=== PATIENT | female | born 1955 | race Caucasian/White ===

== ENCOUNTER → 2018-07-16 10:56 | Outpatient (CLI) | payer BC, SELFPAY ==
[2018-07-16 11:47] LABS: Add Manual Diff / Slide Review NO; Basophils Percent Auto 0.6 % (0-2); Hematocrit 43.9 % (36-46); Hemoglobin 15.1 g/dL (12.0-16.0); Lymphocytes Percent Auto 20.3 % (25-40); Mean Corpuscular HGB Conc 34.3 % (30-36); Mean Corpuscular Hemoglobin 31.3 PG (26-34); Mean Corpuscular Volume 91.3 fL (80-100); Monocytes Percent Auto 7.5 % (3-14); Neutrophils Absolute Auto 5000 /uL (3000-5900); Neutrophils Percent Auto 70.6 % (50-75); Platelet Count 244 X10^3/uL (150-400); Red Blood Cell Count 4.81 X10^6/uL (4.0-5.2); Red Cell Distribution Width 13.2 % (11.6-14.8)
[2018-07-16 12:00] LABS: Cholesterol 187 mg/dL (140-199); HDL Cholesterol 54 mg/dL (40-60); LDL Cholesterol Calculated 109 mg/dL (<100); Triglycerides 119 mg/dL (35-150)
== END ==
PROVIDERS: Visit Provider Physician Assistant
DX: I10 Essential (primary) hypertension (principal); E78.5 Hyperlipidemia, unspecified
CPT/HCPCS: 36415; 80061; 85025

== ENCOUNTER → 2019-01-28 09:38 | Outpatient (CLI) | payer BC, SELFPAY ==
--- NOTE | 2019-01-28 | DI.MG.S_ITS ---
UNILATERAL LEFT DIGITAL SCREENING MAMMOGRAM 3D/2D WITH CAD POST MASTECTOMY: 01/28/2019 CLINICAL: Routine screening. Personal history of right breast cancer. Family history of breast cancer. Comparison is made to exams dated: 01/06/2018 mammogram, 12/18/2016 mammogram, and 12/12/2015 mammogram - [facility]. The tissue of left breast is heterogeneously dense. This may lower the sensitivity of mammography. Current study was also evaluated with a Computer Aided Detection (CAD) system. No significant masses, calcifications, or other findings are seen in the breast. There has been no significant interval change. IMPRESSION: NEGATIVE There is no mammographic evidence of malignancy. A 1 year screening mammogram is recommended. This exam was interpreted at Station ID: [id number]. NOTE: For mammograms, a report in lay terms will be sent to the patient. Approximately 15% of breast malignancies will not be visualized mammographically. In the management of a palpable breast mass, a negative mammogram must not discourage biopsy of a clinically suspicious lesion. Electronically Signed By: Krystian stone/siva:01/28/2019 10:48:52 copy to: SPENCER GUADARRAMA copy to: PAUL COYNE letter sent: Normal Exam ACR BI-RADS Category 1: Negative 3341F
== END ==
PROVIDERS: PCP Physician Assistant; Visit Provider Physician Assistant
DX: Z12.31 Encounter for screening mammogram for malignant neoplasm of breast (principal); Z85.3 Personal history of malignant neoplasm of breast; Z80.3 Family history of malignant neoplasm of breast
CPT/HCPCS: 77063; 77067

== ENCOUNTER → 2020-02-08 09:45 | Outpatient (CLI) | payer BC, SELFPAY ==
--- NOTE | 2020-02-08 09:48 | DI.MG.S_ITS ---
UNILATERAL LEFT DIGITAL SCREENING MAMMOGRAM 3D/2D WITH CAD POST MASTECTOMY: 02/08/2020 CLINICAL: Routine screening. Personal history of right breast cancer. Family history of breast cancer. Comparison is made to exams dated: 01/28/2019 mammogram, 01/06/2018 mammogram, and 12/18/2016 mammogram - [facility]. The tissue of left breast is heterogeneously dense. This may lower the sensitivity of mammography. Current study was also evaluated with a Computer Aided Detection (CAD) system. No significant masses, calcifications, or other findings are seen in the breast. There has been no significant interval change. IMPRESSION: NEGATIVE There is no mammographic evidence of malignancy. A 1 year screening mammogram is recommended. This exam was interpreted at Station ID: [id number]. NOTE: For mammograms, a report in lay terms will be sent to the patient. Approximately 15% of breast malignancies will not be visualized mammographically. In the management of a palpable breast mass, a negative mammogram must not discourage biopsy of a clinically suspicious lesion. Electronically Signed By: Krystian stone/siva:02/08/2020 10:21:55 copy to: SPENCER GUADARRAMA copy to: LAYLA GUARDADO letter sent: Normal Exam ACR BI-RADS Category 1: Negative 3341F
== END ==
PROVIDERS: PCP Physician Assistant; Referring Provider Physician Assistant; Visit Provider Physician Assistant
DX: Z12.31 Encounter for screening mammogram for malignant neoplasm of breast (principal); Z85.3 Personal history of malignant neoplasm of breast; Z80.3 Family history of malignant neoplasm of breast; Z90.11 Acquired absence of right breast and nipple
CPT/HCPCS: 77063; 77067

== ENCOUNTER → 2020-05-10 10:01 | Outpatient (CLI) | payer BC, SELFPAY ==
[2020-05-10 10:46] LABS: Add Manual Diff / Slide Review NO; Basophils Absolute Auto 0 /uL (0-100); Basophils Percent Auto 0.7 % (0-2); Eosinophils Absolute Auto 100 /uL (0-450); Eosinophils Percent Auto 1.3 % (2-4); Hematocrit 44.5 % (36-46); Hemoglobin 15.6 g/dL (12.0-16.0); Lymphocytes Absolute Auto 1600 /uL (1100-4500); Mean Corpuscular HGB Conc 35.1 % (30-36); Mean Corpuscular Hemoglobin 31.7 PG (26-34); Mean Corpuscular Volume 90.4 fL (80-100); Monocytes Absolute Auto 500 /uL (0-900); Monocytes Percent Auto 8.5 % (3-14); Neutrophils Absolute Auto 3900 /uL (1500-7000); Neutrophils Percent Auto 63.5 % (50-75); Platelet Count 234 X10^3/uL (150-400); Red Blood Cell Count 4.92 X10^6/uL (4.0-5.2); Red Cell Distribution Width 12.9 % (11.6-14.8); White Blood Cell Count 6.1 X10^3/uL (4.5-11.0)
[2020-05-10 11:02] LABS: Alanine Aminotransferase 25 IU/L (<35); Albumin 4.3 g/dL (3.5-5.0); Albumin Globulin Ratio 1.7 (1.0-2.8); Alkaline Phosphatase 74 U/L (38-126); Aspartate Aminotransferase 28 IU/L (14-36); BUN Creatinine Ratio 17.8 (6-22); Bilirubin Total 1.1 mg/dL (0.2-1.3); Blood Urea Nitrogen 13 mg/dL (7-17); Calcium 9.6 mg/dL (8.4-10.2); Carbon Dioxide 24 mmol/L (22-32); Chloride 108 mmol/L (98-107); Cholesterol 204 mg/dL (140-199); Estimated Glomerular Filt Rate > 60.0 mL/min (>60); Globulin 2.6 g/dL (1.7-4.1); Glucose 111 mg/dL (80-110); HDL Cholesterol 47 mg/dL (40-60); HEMOLYSIS < 15 (0-50); LDL Cholesterol Calculated 135 mg/dL (<100); Sodium 140 mmol/L (137-145); Total Protein 6.9 g/dL (6.3-8.2); Triglycerides 111 mg/dL (35-150)
== END ==
PROVIDERS: PCP Physician Assistant; Referring Provider Physician Assistant; Visit Provider Physician Assistant
DX: I10 Essential (primary) hypertension (principal); E78.2 Mixed hyperlipidemia
CPT/HCPCS: 36415; 80053; 80061; 85025

== ENCOUNTER → 2021-02-11 11:51 | Outpatient (CLI) | payer BC, MEDICARE, SELFPAY ==
--- NOTE | 2021-02-11 | DI.MG.S_ITS ---
UNILATERAL LEFT DIGITAL SCREENING MAMMOGRAM 3D/2D WITH CAD POST MASTECTOMY: 02/11/2021 CLINICAL: Routine screening. Personal history of right breast cancer. Family history of breast cancer. Comparison is made to exams dated: 02/08/2020 mammogram, 01/28/2019 mammogram, and 01/06/2018 mammogram - [facility]. The tissue of left breast is heterogeneously dense. This may lower the sensitivity of mammography. Current study was also evaluated with a Computer Aided Detection (CAD) system. No significant masses, calcifications, or other findings are seen in the breast. There has been no significant interval change. IMPRESSION: NEGATIVE There is no mammographic evidence of malignancy. A 1 year screening mammogram is recommended. This exam was interpreted at Station ID: [id number]. NOTE: For mammograms, a report in lay terms will be sent to the patient. Approximately 15% of breast malignancies will not be visualized mammographically. In the management of a palpable breast mass, a negative mammogram must not discourage biopsy of a clinically suspicious lesion. Electronically Signed By: Toña mancuso/siva:02/11/2021 12:35:49 copy to: SPENCER GUADARRAMA copy to: LAYLA GUARDADO letter sent: Normal Exam ACR BI-RADS Category 1: Negative 3341F
== END ==
PROVIDERS: PCP Physician Assistant; Referring Provider Internal Medicine; Visit Provider Internal Medicine
DX: Z12.31 Encounter for screening mammogram for malignant neoplasm of breast (principal); Z80.3 Family history of malignant neoplasm of breast; Z85.3 Personal history of malignant neoplasm of breast
CPT/HCPCS: 77063; 77067

== ENCOUNTER → 2022-03-07 14:56 | Outpatient (CLI) | payer MEDICARE, OTHER, SELFPAY ==
--- NOTE | 2022-03-07 15:00 | DI.RAD.S_ITS ---
PROCEDURE: XR DEXA AXIAL SKELETON INDICATIONS: Asymptomatic menopausal state COMPARISON: None. FINDINGS: This blank DEXA report has been sent in error by the PACS system. The correct and complete report will be forthcoming in 1-2 days. Thank you for your patience and understanding. Dictated by: Liliana Scruggs MD, PhD on 03/07/2022 at 17:02 Approved by: Liliana Scruggs MD, PhD on 03/07/2022 at 17:02
== END ==
PROVIDERS: PCP Physician Assistant; Referring Provider Physician Assistant; Visit Provider Physician Assistant
DX: Z78.0 Asymptomatic menopausal state (principal); Z13.820 Encounter for screening for osteoporosis; M85.88 Other specified disorders of bone density and structure, other site
CPT/HCPCS: 77080; 77086

== ENCOUNTER → 2022-08-25 12:53 | Outpatient (CLI) | payer MEDICARE, BC, SELFPAY ==
--- NOTE | 2022-08-25 12:56 | DI.MG.S_ITS ---
UNILATERAL LEFT DIGITAL SCREENING MAMMOGRAM 3D/2D WITH CAD POST MASTECTOMY: 08/25/2022 CLINICAL: Routine screening. Breast cancer. Family history of breast cancer. Comparison is made to exams dated: 02/11/2021 mammogram, 02/08/2020 mammogram, and 01/28/2019 mammogram - [facility]. The left breast is heterogeneously dense, which may obscure small masses (category c / 51-75% glandular tissue). Current study was also evaluated with a Computer Aided Detection (CAD) system. No significant masses, calcifications, or other findings are seen in the breast. There has been no significant interval change. IMPRESSION: NEGATIVE There is no mammographic evidence of malignancy. A 1 year screening mammogram is recommended. This exam was interpreted at Station ID: [id number]. NOTE: For mammograms, a report in lay terms will be sent to the patient. Approximately 15% of breast malignancies will not be visualized mammographically. In the management of a palpable breast mass, a negative mammogram must not discourage biopsy of a clinically suspicious lesion. Electronically Signed By: Abhi ferrari/siva:08/25/2022 14:32:45 copy to: SPENCER GUADARRAMA copy to: LAYLA GUARDADO letter sent: Normal Exam ACR BI-RADS Category 1: Negative 3341F
== END ==
PROVIDERS: PCP Physician Assistant; Visit Provider Physician Assistant
DX: Z12.31 Encounter for screening mammogram for malignant neoplasm of breast (principal); Z85.3 Personal history of malignant neoplasm of breast; Z80.3 Family history of malignant neoplasm of breast
CPT/HCPCS: 77063; 77067

== ENCOUNTER → 2023-10-02 10:37 | Outpatient (CLI) | payer MEDICARE, BC, SELFPAY ==
--- NOTE | 2023-10-02 | DI.MG.S_ITS ---
UNILATERAL LEFT DIGITAL SCREENING MAMMOGRAM 3D/2D WITH CAD: 10/02/2023 CLINICAL: Routine screening. Personal history of right breast cancer. Comparison is made to exams dated: 08/25/2022 mammogram, 02/11/2021 mammogram, and 02/08/2020 mammogram - [facility]. The left breast is heterogeneously dense, which may obscure small masses (category c / 51-75% glandular tissue). Current study was also evaluated with a Computer Aided Detection (CAD) system. No significant masses, calcifications, or other findings are seen in the breast. There has been no significant interval change. IMPRESSION: NEGATIVE There is no mammographic evidence of malignancy. A 1 year screening mammogram is recommended. This exam was interpreted at Station ID: [id number]. NOTE: For mammograms, a report in lay terms will be sent to the patient. Approximately 15% of breast malignancies will not be visualized mammographically. In the management of a palpable breast mass, a negative mammogram must not discourage biopsy of a clinically suspicious lesion. Electronically Signed By: Blair Acosta M.D. acr/penrad:10/02/2023 14:40:10 copy to: SPENCER GUADARRAMA copy to: LAYLA GUARDADO letter sent: Normal Exam ACR BI-RADS Category 1: Negative 3341F
== END ==
PROVIDERS: PCP Physician Assistant; Referring Provider Physician Assistant; Visit Provider Physician Assistant
DX: Z12.31 Encounter for screening mammogram for malignant neoplasm of breast (principal); Z85.3 Personal history of malignant neoplasm of breast
CPT/HCPCS: 77063; 77067

== ENCOUNTER 2024-08-30 10:38 | Emergency (ER) | payer OTHER, SELFPAY ==
[2024-08-30 10:42] VITALS: BP 160/96; PULSE 77; RESP 14; TEMP 37; O2SAT 100; BMI 28.1
--- NOTE | 2024-08-30 10:45 | DI.RAD.S_ITS ---
PROCEDURE: XR WRIST LT MIN 3V INDICATIONS: wrist injury TECHNIQUE: 3 views of the wrist were acquired. COMPARISON: None. FINDINGS: Bones: Comminuted, minimally displaced, intra-articular fracture of the distal radius. Soft tissues: No suspicious soft tissue calcifications. IMPRESSION: Distal radius fracture. Dictated by: Liliana Scruggs MD, PhD on 08/30/2024 at 11:15 Approved by: Liliana Scruggs MD, PhD on 08/30/2024 at 11:15
--- NOTE | 2024-08-30 11:28 | ED_ITS ---
HPI - Extremity Injury (Upper) <Freida Otero PA-C - Last Filed: 08/30/24 12:56> General Chief Complaint: Extremity Injury, Upper Stated Complaint: Fell and hurt her wrist Time Seen by Provider: 08/30/24 11:28 Source: patient Mode of arrival: Ambulatory History of Present Illness HPI narrative: 68-year-old female presents to the emergency department for a fall that occurred on Thursday 2 days ago. She describes tripping with no precipitating events falling on an outstretched hand, her chief complaint is left wrist pain. She takes no blood thinners, she has not strike her head, she is denying any other injuries. She has been icing it, her pain is on the radial aspect. She denies any tingling, weakness, numbness, temperature changes to the wrist or arm. She is right-handed dominant. She lives alone and is . No other treatment tried. History significant for hypertension, right mastectomy, no blood pressures on the right arm, she endorses a history of cellulitis involving her left elbow following a PICC line nothing recent. All other systems are reviewed and are negative. Related Data Home Medications Medication Instructions Recorded Confirmed losartan 25 mg tablet (Cozaar) 25 mg PO DAILY 03/30/18 07/24/21 vit B complex-folic acid 50 ea PO 3XW 03/30/18 07/24/21 calcium citrate 250 mg DAILY 06/06/20 07/24/21 lutein 10 mg tablet 10 mg PO DAILY 07/24/21 07/24/21 Allergies Allergy/AdvReac Type Severity Reaction Status Date / Time codeine Allergy Severe DIFFICULTY Verified 08/30/24 10:42 BREATHING/ITCHING Review of Systems <Freida Otero PA-C - Last Filed: 08/30/24 12:56> Review of Systems Narrative: All other systems reviewed and are negative. Patient History <Freida Otero PA-C - Last Filed: 08/30/24 12:56> Surgical History Status post partial mastectomy Social History Smoking Status: Current every day smoker Smoking Status: Current every day smoker alcohol intake frequency: 3 or more drinks per day Substance Use Type: does not use Exam <Freida Otero PA-C - Last Filed: 08/30/24 12:56> Initial Vital Signs Initial Vital Signs: Vital Signs Temperature 98.6 F 08/30/24 10:42 Pulse Rate 77 08/30/24 10:42 Respiratory Rate 14 08/30/24 10:42 Blood Pressure 160/96 H 08/30/24 10:42 Pulse Oximetry 100 08/30/24 10:42 Oxygen Delivery Method Room Air 08/30/24 10:42 Vital signs reviewed and are normal except for elevated blood pressure reading in a known hypertensive patient. Const Other: Smiling, seated, no distress. She is alert and oriented x4. Chest Other: Atraumatic. Resp Auscultation: clear to auscultation bilaterally Cardio Rate: regular rate Rhythm: regular rhythm Neuro Other: Distal neurovascular is grossly intact to her left arm, pinch mechanism is intact, no issues identified with the median ulnar or radial nerves. Two point discrimination intact. Extrem Left upper extremity: normal capillary refill and wrist Details: abnormal to inspection, tenderness, swelling, abnormal ROM, normal vascular exam, radial pulse present and ulnar pulse present; no unusual warmth, no ecchymosis, no penetrating wound and no deformity; no cyanosis Other: Focal tenderness of the distal radius, no snuffbox tenderness, pinch mechanism is intact. No issues identified with the hand or digits. No ulnar tenderness, no issues identified with the elbow or proximal forearm. Limited wrist ROM pain with flexion extension ulnar and radial deviation are not performed due to positive x-ray findings showing distal radius fracture. <Basilio Almeida DO - Last Filed: 08/30/24 15:02> Initial Vital Signs Initial Vital Signs: Vital Signs Temperature 98.6 F 08/30/24 10:42 Pulse Rate 77 08/30/24 10:42 Respiratory Rate 14 08/30/24 10:42 Blood Pressure 160/96 H 08/30/24 10:42 Pulse Oximetry 100 08/30/24 10:42 Oxygen Delivery Method Room Air 08/30/24 10:42 Course <Freida Otero PA-C - Last Filed: 08/30/24 12:56> Course Course Narrative: Mechanical fall, no precipitating events, radiographs reveal minimally displaced distal radius fracture, it appears impacted, per the radiologist's it was ?comminuted,she is right-handed dominant. She is splinted with a sugar-tong and placed in a splint, she is reexamined then she is comfortable, distal neurovascular is grossly intact. Orders Ordered: ED Orders 08/30/24 10:45 XR wrist LT min 3V Stat Reevaluation(s) Reevaluation #1: She is splinted with a sugar-tong and placed in a splint, she is reexamined then she is comfortable, distal neurovascular is grossly intact. Discussed the importance of orthopedic follow-up and I have given her that information. Vital Signs Vital signs: Vital Signs - 8 hr 08/30/24 10:42 08/30/24 12:04 08/30/24 12:40 Temperature 98.6 F 98.0 F Pulse Rate 77 75 Pulse Rate [Left Radial] 80 Respiratory Rate 14 15 Blood Pressure 160/96 H 148/73 H Pulse Oximetry 100 99 Oxygen Delivery Method Room Air Room Air <Basilio Almeida DO - Last Filed: 08/30/24 15:02> Orders Ordered: ED Orders 08/30/24 10:45 XR wrist LT min 3V Stat Vital Signs Vital signs: Vital Signs - 8 hr 08/30/24 10:42 08/30/24 12:04 08/30/24 12:40 Temperature 98.6 F 98.0 F Pulse Rate 77 75 Pulse Rate [Left Radial] 80 Respiratory Rate 14 15 Blood Pressure 160/96 H 148/73 H Pulse Oximetry 100 99 Oxygen Delivery Method Room Air Room Air MDM - Extremity Injury (Upper) <Freida Otero PA-C - Last Filed: 08/30/24 12:56> Imaging Data Extremity x-ray #1: My Impression: Minimally displaced distal radius impacted fracture, intra-articular. Radiologist's Impression: PROCEDURE: XR WRIST LT MIN 3V INDICATIONS: wrist injury TECHNIQUE: 3 views of the wrist were acquired. COMPARISON: None. FINDINGS: Bones: Comminuted, minimally displaced, intra-articular fracture of the distal radius. Soft tissues: No suspicious soft tissue calcifications. IMPRESSION: Distal radius fracture. Dictated by: Liliana Scruggs MD, PhD on 08/30/2024 at 11:15 Approved by: Liliana Scruggs MD, PhD on 08/30/2024 at 11:15 [facility] Narrative Medical decision making narrative: Minimally displaced closed intra-articular fracture of the distal radius. She is right-handed dominant. She is splinted with a sugar-tong splint and sling she feels comfortable. I have referred her to Orthopedics. Red flag warning signs reviewed in great detail, if she is any issues with the splint, any swelling, decreased sensation, tingling, pain, please return immediately to the emergency department. <Basilio Almeida, DO - Last Filed: 08/30/24 15:02> [facility] Narrative Medical decision making narrative: Minimally displaced closed intra-articular fracture of the distal radius. She is right-handed dominant. She is splinted with a sugar-tong splint and sling she feels comfortable. I have referred her to Orthopedics. Red flag warning signs reviewed in great detail, if she is any issues with the splint, any swelling, decreased sensation, tingling, pain, please return immediately to the emergency department. Dr. Almeida: I was immediately available in the department for consultation. Documentation has been reviewed. I agree with assessment and plan. Discharge Plan Departure Patient Disposition: Home Clinical Impression: Fracture of distal end of radius Qualifiers: Encounter type: initial encounter Fracture type: closed Fracture morphology: other intra-articular Laterality: left Qualified Code(s): S52.572A - Other intraarticular fracture of lower end of left radius, initial encounter for closed fracture Instructions: DI for Wrist Fracture Activity Restrictions/Additional Instructions: Please contact [facility] at [phone] to schedule a follow-up appointment. You should also follow up with your PCP. Wear the splint at all times, wear the sling at all times. Covered with plastic while showering, I recommend a shower chair for safety and minimize her chances of fall. Avoid new injury or re-injury. Elevate, may take Tylenol as needed for pain. Seek medical attention if you have any issues with the splint, you have any numbness, tingling, increased swelling, worsening pain, your fingers become cool to the touch or any other worrisome symptoms please do returned to the emergency department. Prescriptions: No Action losartan [Cozaar] 25 mg Tablet 25 mg PO DAILY vit B complex-folic acid 50 MG tablet 50 ea PO 3XW calcium citrate 250 mg calcium Tablet 250 mg DAILY lutein 10 mg Tablet 10 mg PO DAILY Referrals: Xiomara Lopez PA-C [Primary Care Provider] - Stand Alone Forms: Patient Portal/API
[2024-08-30 12:04] VITALS: PULSE 80
[2024-08-30 12:40] VITALS: BP 148/73; PULSE 75; RESP 15; TEMP 36.7; O2SAT 99
== END 2024-08-30 12:41 | disposition home or self-care (01) ==
PROVIDERS: Emergency Provider Physician Assistant Medical; PCP Physician Assistant
DX: S52.572A Other intraarticular fracture of lower end of left radius, initial encounter for closed fracture (principal); W18.30XA Fall on same level, unspecified, initial encounter
CPT/HCPCS: 29105; 73110; 99282; 99283

== ENCOUNTER 2024-10-03 01:07 | Emergency (ER) | payer OTHER, SELFPAY ==
[2024-10-03 01:17] VITALS: BP 193/93; PULSE 89; RESP 20; TEMP 36.5; O2SAT 98; BMI 27.3
--- NOTE | 2024-10-03 01:25 | ED.EYEPROB ---
HPI - Eye Problem General Chief complaint: Eye Problems Stated complaint: rt eye is red Time Seen by Provider: 10/03/24 01:14 Source: patient Mode of arrival: Ambulatory History of Present Illness HPI Narrative: 68-year-old female with 2 days duration right eye redness, initially medial inside aspect, now lateral aspect. No injury recalled. No foreign body sensation. She does not use contacts lenses. No blurred vision. No headache. No problems with glaucoma known. She denies use of blood thinner medications. Related Data Home Medications Medication Instructions Recorded Confirmed losartan 25 mg tablet (Cozaar) 25 mg PO DAILY 03/30/18 07/24/21 vit B complex-folic acid 50 ea PO 3XW 03/30/18 07/24/21 calcium citrate 250 mg DAILY 06/06/20 07/24/21 lutein 10 mg tablet 10 mg PO DAILY 07/24/21 07/24/21 Allergies Allergy/AdvReac Type Severity Reaction Status Date / Time codeine Allergy Severe DIFFICULTY Verified 08/30/24 10:42 BREATHING/ITCHING Review of Systems Review of Systems Narrative: GENERAL: Well-developed patient, in mild distress. HEAD: Atraumatic. Normocephalic. EYES: Pupils equal round and reactive. Extraocular motions intact. No scleral icterus. No injection or drainage. ENT: Nose without bleeding, purulent drainage. Throat without erythema, tonsillar hypertrophy or exudate. Airway patent. NECK: Trachea midline. Non tender CARDIOVASCULAR: Regular rate and rhythm without murmurs, gallops, or rubs. RESPIRATORY: Clear to auscultation. Breath sounds equal bilaterally. No wheezes, rales, or rhonchi. GASTROINTESTINAL: Abdomen soft, non-tender, nondistended. EXTREMITIES: No edema or joint tenderness. BACK: Nontender without deformity or crepitance. No flank tenderness. NEURO: AOx3. Motor functions grossly nonfocal SKIN: No rash or erythema of visible areas Patient History Surgical History Status post partial mastectomy Social History Smoking Status: Current every day smoker Smoking Status: Current every day smoker alcohol intake frequency: 3 or more drinks per day Substance Use Type: does not use Exam Narrative Exam Narrative: GENERAL: Well-developed patient, in mild distress. HEAD: Atraumatic. Normocephalic. EYES: Pupils equal round and reactive. Extraocular motions intact. No scleral icterus. No injection or drainage. Right eye medial scleral hemorrhage, inferior margin ocular to right sg limbus region. No gross hyphema on Wood's lamp inspection. No fluorescein uptake corneal or otherwise, no foreign body material identified. Visual acuity OD 20/40, OS 20/50, OU 20/30. Tonometry right eye pressure reading 14 not elevated. ENT: Nose without bleeding, purulent drainage. Throat without erythema, tonsillar hypertrophy or exudate. Airway patent. NECK: Trachea midline. Non tender CARDIOVASCULAR: Regular rate and rhythm without murmurs, gallops, or rubs. RESPIRATORY: Clear to auscultation. Breath sounds equal bilaterally. No wheezes, rales, or rhonchi. GASTROINTESTINAL: Abdomen soft, non-tender, nondistended. EXTREMITIES: No edema or joint tenderness. BACK: Nontender without deformity or crepitance. No flank tenderness. NEURO: AOx3. Motor functions grossly nonfocal SKIN: No rash or erythema of visible areas Initial Vital Signs Initial Vital Signs: Vital Signs Temperature 97.7 F 10/03/24 01:17 Pulse Rate 89 10/03/24 01:17 Respiratory Rate 20 10/03/24 01:17 Blood Pressure 193/93 H 10/03/24 01:17 Pulse Oximetry 98 10/03/24 01:17 Oxygen Delivery Method Room Air 10/03/24 01:17 Course Orders Ordered: Discontinued Medications Erythromycin (Erythromycin Ophth 1 Gm Oint) 1 applic EYE-RIGHT NOW ONE Stop: 10/03/24 02:07 Last Admin: 10/03/24 02:23 Dose: 1 applic Documented By: THERON Fluorescein Sodium (Fluorescein 1 Mg Strip) 1 mg EYE-RIGHT NOW ONE Stop: 10/03/24 01:25 Last Admin: 10/03/24 02:01 Dose: 1 mg Documented By: Proparacaine HCl (Proparacaine 0.5% Ophth Tereza) 1 drops EYE-RIGHT NOW ONE Stop: 10/03/24 01:25 Last Admin: 10/03/24 02:02 Dose: 1 drop Documented By: Vital Signs Vital signs: Vital Signs - 8 hr 10/03/24 01:17 10/03/24 02:32 Temperature 97.7 F 98.1 F Pulse Rate 89 70 Respiratory Rate 20 17 Blood Pressure 193/93 H 147/84 H Pulse Oximetry 98 98 Oxygen Delivery Method Room Air Room Air MDM - Eye Problem MDM Narrative Medical decision making narrative: Right eye scleral hemorrhage medial inferior slightly to the right, not necessarily sash/diagonal in distribution. Fluorescein after proparacaine, no obvious foreign body, no corneal uptake, no scleral uptake. Tonometry pressure measurement that eye 14 not elevated. Erythromycin ointment applied. Advised follow up eye Clinic later this morning Thursday during regular hours, contact information given for local providers. None on-call for communication and coordination of services. Contact eye clinic 8:00 a.m. later this morning advised. Return earlier to this/nearest emergency department for any change worsening symptoms or any concerns prior Discharge Plan Departure Patient Disposition: Home Clinical Impression: Scleral hemorrhage of right eye Activity Restrictions/Additional Instructions: Hemorrhage of the right sclera of the eye, medial aspect greater than lateral aspect. Fluorescein examination with Wood's lamp magnification after proparacaine numbing eye drop, no obvious foreign body seen, no corneal abrasion obvious. Pressure in the right eye not elevated on Bryan-Pen measurement. You did describe some discharge, possible component of infection, erythromycin ointment dispensed, 1 ribbon right eye 3 times daily. Unclear cause of your symptoms, possible spontaneous rupture of a blood vessel. Follow up with eye clinic advised during open hours later today, contact information for to local clinic providers, though neither are on-call to coordinate care. After 8:00 a.m. this morning please call 1 of their offices to see if you can be worked in for ER follow up visit in evaluation. Return earlier to this/nearest emergency department for any change worsening symptoms or any concerns prior Prescriptions: No Action losartan [Cozaar] 25 mg Tablet 25 mg PO DAILY vit B complex-folic acid 50 MG tablet 50 ea PO 3XW calcium citrate 250 mg calcium Tablet 250 mg DAILY lutein 10 mg Tablet 10 mg PO DAILY Referrals: Siria Ba MD [Physician] - Tyrell Diaz MD [Physician] - Xiomara Lopez PA-C [Primary Care Provider] - Stand Alone Forms: Patient Portal/API/Survey
[2024-10-03] MEDS: FLUORESCEIN 1 MG STRIP EYE-RIGHT (02:01)
[2024-10-03] MEDS: PROPARACAINE 0.5% OPHTH SOL 1 DROPS EYE-RIGHT (02:02)
[2024-10-03] MEDS: ERYTHROMYCIN OPHTH 1 GM OINT 1 APPLIC EYE-RIGHT (02:23)
[2024-10-03 02:32] VITALS: BP 147/84; PULSE 70; RESP 17; TEMP 36.7; O2SAT 98
== END 2024-10-03 02:34 | disposition home or self-care (01) ==
PROVIDERS: Emergency Provider Emergency Medicine; PCP Physician Assistant
DX: H11.31 Conjunctival hemorrhage, right eye (principal)
CPT/HCPCS: 99282

== ENCOUNTER → 2024-12-08 10:52 | Outpatient (CLI) | payer OTHER, SELFPAY ==
--- NOTE | 2024-12-08 10:54 | DI.MG.S_ITS ---
UNILATERAL LEFT DIGITAL SCREENING MAMMOGRAM 3D/2D WITH CAD: 12/08/2024 CLINICAL: Routine screening. Personal history of right breast cancer. Comparison is made to exams dated: 10/02/2023 mammogram, 08/25/2022 mammogram, and 02/11/2021 mammogram - [facility]. The breasts are heterogeneously dense, which may obscure small masses (category c / 51-75% glandular tissue). Current study was also evaluated with a Computer Aided Detection (CAD) system. There is a possible developing focal asymmetry with an obscured margin in the left breast central to the nipple middle depth. No other significant masses or calcifications are seen in the breast. IMPRESSION: INCOMPLETE: NEED ADDITIONAL IMAGING EVALUATION The possible developing focal asymmetry in the left breast is indeterminate. Additional views with possible ultrasound are recommended. This exam was interpreted at Station ID: [id number]. NOTE: For mammograms, a report in lay terms will be sent to the patient. Approximately 15% of breast malignancies will not be visualized mammographically. In the management of a palpable breast mass, a negative mammogram must not discourage biopsy of a clinically suspicious lesion. Electronically Signed By: Krystian Phoenix M.D. at/:12/08/2024 18:17:42 copy to: SPENCER GUADARRAMA copy to: LAYLA GUARDADO letter sent: Additional Imaging Needed ACR BI-RADS Category 0: Incomplete: Need Additional Imaging Evaluation
== END ==
PROVIDERS: PCP Physician Assistant; Referring Provider Physician Assistant; Visit Provider Physician Assistant
DX: Z12.31 Encounter for screening mammogram for malignant neoplasm of breast (principal); Z85.3 Personal history of malignant neoplasm of breast; R92.333 Mammographic heterogeneous density, bilateral breasts
CPT/HCPCS: 77063; 77067

== ENCOUNTER → 2025-01-13 10:09 | Outpatient (CLI) | payer OTHER, SELFPAY ==
--- NOTE | 2025-01-13 10:10 | DI.US.S_ITS ---
LIMITED ULTRASOUND OF LEFT BREAST: 01/13/2025 CLINICAL: Patient returns today to evaluate a focal asymmetry in the left breast. Comparison is made to exams dated: 01/13/2025 mammogram, 12/08/2024 mammogram, 10/02/2023 mammogram, 08/25/2022 mammogram, 02/11/2021 mammogram, and 02/08/2020 mammogram - [facility]. Ultrasound of was performed. Confirmatory ultrasound demonstrates no sonographic abnormality at 11, 12 and 1 o'clock at a distance of 1 to 7 cm from the nipple. There are incidental benign mildly prominent retroareolar ducts. IMPRESSION: BENIGN Superimposition of normal breast tissue with confirmatory negative ultrasound. Incidental benign mildly prominent retroareolar ducts. No sonographic or mammographic evidence of malignancy. Recommend return to annual mammogram screening. Findings and recommendations were conveyed to the patient at the time of imaging completion. This exam was interpreted at Station ID: [id number]. Electronically Signed By: Jenniffer Lim M.D., Ph.D. eb/:01/13/2025 11:32:52 copy to: SPENCER GUADARRAMA copy to: LAYLA GUARDADO letter sent: Normal Exam ACR BI-RADS Category 2: Benign
--- NOTE | 2025-01-13 10:10 | DI.MG.S_ITS ---
UNILATERAL LEFT DIGITAL DIAGNOSTIC MAMMOGRAM 3D/2D: 01/13/2025 CLINICAL: Additional evaluation requested from prior study. Comparison is made to exams dated: 12/08/2024 mammogram, 10/02/2023 mammogram, and 08/25/2022 mammogram - [facility]. The breasts are heterogeneously dense, which may obscure small masses (category c / 51-75% glandular tissue). The finding seen on recent screening mammogram did not persist with additional imaging and likely represents superimposition of normal breast tissue. No significant masses, calcifications, or other findings are seen in the breast. IMPRESSION: INCOMPLETE: NEED ADDITIONAL IMAGING EVALUATION Probable superimposition of normal breast tissue. Recommend further evaluation with targeted breast ultrasound, which will immediately follow this exam. This exam was interpreted at Station ID: [id number]. NOTE: For mammograms, a report in lay terms will be sent to the patient. Approximately 15% of breast malignancies will not be visualized mammographically. In the management of a palpable breast mass, a negative mammogram must not discourage biopsy of a clinically suspicious lesion. Electronically Signed By: Jenniffer Lim M.D., Ph.D. eb/:01/13/2025 11:30:39 copy to: SPENCER GUADARRAMA copy to: LAYLA GUARDADO letter sent: Additional Imaging Needed ACR BI-RADS Category 0: Incomplete: Need Additional Imaging Evaluation
== END ==
PROVIDERS: PCP Physician Assistant; Referring Provider Physician Assistant; Visit Provider Physician Assistant
DX: Z85.3 Personal history of malignant neoplasm of breast (principal); R92.8 Other abnormal and inconclusive findings on diagnostic imaging of breast; R92.333 Mammographic heterogeneous density, bilateral breasts
CPT/HCPCS: 76642; 77065; G0279

== ENCOUNTER 2025-02-01 10:02 | Emergency (ER) | payer OTHER, SELFPAY ==
[2025-02-01 10:04] VITALS: BP 180/101; PULSE 77; RESP 14; TEMP 36.8; O2SAT 99; BMI 28.1
--- NOTE | 2025-02-01 10:07 | ED.LOWEXIN ---
HPI - Extremity Injury (Lower) General Chief Complaint: Fall Stated Complaint: R leg injury Time Seen by Provider: 02/01/25 10:07 History of Present Illness HPI Narrative: 69-year-old female with past medical history of hypertension comes into the ED from home for evaluation of swelling bruising to the proximal right tibia. She states that approximately 1 week ago she did trip hit it against something, since then she has had persistent swelling bruising to that leg. But denies any numbness weakness tingling to bilateral lower extremities. She states that the swelling has persisted therefore decided come into the ED for further evaluation treatment. She denies any worsening pain, she denies any blood thinners. He is able to stand bear weight ambulate unassisted here in the emergency department. She denies any other injuries pain or concerns at this time. Related Data Home Medications Medication Instructions Recorded Confirmed losartan 25 mg tablet (Cozaar) 25 mg PO DAILY 03/30/18 07/24/21 vit B complex-folic acid 50 ea PO 3XW 03/30/18 07/24/21 calcium citrate 250 mg DAILY 06/06/20 07/24/21 lutein 10 mg tablet 10 mg PO DAILY 07/24/21 07/24/21 Previous Rx's Medication Instructions Recorded cephalexin 500 mg capsule 500 mg PO Q6H 7 days #28 caps 02/01/25 Allergies Allergy/AdvReac Type Severity Reaction Status Date / Time codeine Allergy Severe DIFFICULTY Verified 02/01/25 10:10 BREATHING/ITCHING Review of Systems Review of Systems Narrative: General: Denies fever, chills, weight loss HEENT: Denies headache, eye drainage, eye irritation, head trauma, sore throat, voice change Cardiovascular: Denies any chest pain, palpitations, tachycardia Respiratory: Denies any shortness of breath, cough, wheeze, stridor GI/: Denies any abdominal pain, nausea, vomiting, diarrhea, bright red blood per rectum, melanotic stools, urinary frequency, urinary retention, dysuria, hematuria MSK: Bruising swelling to the right lower leg Skin: Denies any rashes, lesions, discoloration Neuro: Denies any headache, lightheadedness, dizziness, fainting, weakness Psych: Denies SI/HI Patient History Surgical History Status post partial mastectomy Social History Smoking Status: Current every day smoker Smoking Status: Current every day smoker alcohol intake frequency: 3 or more drinks per day Exam Narrative Exam Narrative: General: Cooperative, comfortable, well-developed, not in acute distress HEENT: Normocephalic, atraumatic, PERRLA, normal sclera, eyelids normal, Neck: Active full range of motion, atraumatic Chest: Normal to inspection, negative crepitus, no overlying erythema ecchymosis Respiratory: Normal respiratory effort, not in acute respiratory distress, clear to auscultation bilaterally negative cough, wheeze, tachypnea, rhonchi, rales Cardiology: Regular rate rhythm negative gallop, murmur, rubs GI/: Normal to inspection, soft, nonrigid, no tenderness to palpation, exam deferred MSK: Full range of active range of motion of all 4 extremities, ecchymosis noted to the right lower extremity, swelling noted to the proximal anterior tibia with abrasion noted to the top consistent with trauma, however bilateral lower extremities neurovascular intact no crepitus patient is able to stand bear weight ambulate unassisted here in the emergency department Skin: No rashes lesions noted Neuro: Alert awake oriented x3, moves all 4 extremities spontaneously, cranial nerves intact, able to answer all questions appropriately follows commands appropriately Psych: Cooperative, negative suicidal or homicidal ideations Initial Vital Signs Initial Vital Signs: Vital Signs Temperature 98.3 F 02/01/25 10:04 Pulse Rate 77 02/01/25 10:04 Respiratory Rate 14 02/01/25 10:04 Blood Pressure 180/101 H 02/01/25 10:04 Pulse Oximetry 99 02/01/25 10:04 Oxygen Delivery Method Room Air 02/01/25 10:04 Course Orders Ordered: ED Orders 02/01/25 10:10 XR tibia fibula RT 2V Stat Vital Signs Vital signs: Vital Signs - 8 hr 02/01/25 10:04 Temperature 98.3 F Pulse Rate 77 Respiratory Rate 14 Blood Pressure 180/101 H Pulse Oximetry 99 Oxygen Delivery Method Room Air MDM - Extremity Injury (Lower) Differential Diagnosis Differential diagnosis: Likely other (Fracture, abrasion, ecchymosis, contusion) Imaging Data Extremity x-ray #1: Radiologist's Impression: [address] [address] XRay Report Signed Patient: Pati Mejia MR#: [id number] : 1955 Acct:[id number] Age/Sex: 69 / F Date of Service: 02/01/25 Loc: ED Accession Number: [id number] Procedure: XR tibia fibula RT 2V Ordering Provider: Basilio Almeida D.O. PROCEDURE: XR TIBIA FUBULA RT 2V INDICATIONS: swelling s/p trauma to proximal tibia TECHNIQUE: 2 views of the tibia and fibula were acquired. COMPARISON: None. FINDINGS: Bones: No fractures or dislocations. No suspicious bony lesions. Soft tissues: No suspicious soft tissue calcifications or masses. IMPRESSION: No acute bony abnormality. MDM Narrative Medical decision making narrative: 69-year-old female with a past medical history of hypertension presents for persistent swelling and bruising to the right lower extremity. According to patient she hit it against something a proximally 1 week ago but has had persistent swelling and bruising she has not on any blood thinners she is able to stand bear weight ambulate unassisted here in the emergency department she denies any numbness weakness tingling to the lower extremity. On exam ecchymosis and swelling noted to the proximal tibia with an abrasion noted to the top but no crepitus neurovascularly intact no crepitus. Patient had x-ray performed here without any acute findings. Given patient with abrasion to the lower extremity will treat patient for cellulitis 1st dose of antibiotics here sent home with a prescription instructed follow up with primary care in outpatient setting strict return precautions given she verbalized understanding of this and agrees to being discharged home with outpatient follow up Discharge Plan Departure Patient Disposition: Home Clinical Impression: Contusion of leg, right, Cellulitis Activity Restrictions/Additional Instructions: Please follow up with the primary care doctor Please read the discharge instructions sheet carefully and bring all papers to all doctor follow-up visits, as it may contain information that your doctor may want to see. Disease processes change and evolve, if your symptoms worsen or if you develop any new symptoms that are concerning to you please return for evaluation. Your evaluation today does not show any evidence of any life-threatening/serious illnesses requiring admission to the hospital or surgery. Please follow-up with your doctor for re-evaluation in approximately 1 day. Seek immediate medical attention for any worrisome symptoms. *If you do not have a primary care provider please contact the [facility] Resource line at [phone]. They will ask some questions about your medical history and help get you set up with a doctor in the community. Prescriptions: New cephalexin 500 mg capsule 500 mg PO Q6H 7 Days Qty: 28 0RF No Action losartan [Cozaar] 25 mg Tablet 25 mg PO DAILY vit B complex-folic acid 50 MG tablet 50 ea PO 3XW calcium citrate 250 mg calcium Tablet 250 mg DAILY lutein 10 mg Tablet 10 mg PO DAILY Referrals: Xiomara Lopez PA-C [Primary Care Provider] - Stand Alone Forms: Patient Portal/API/Survey
--- NOTE | 2025-02-01 10:10 | DI.RAD.S_ITS ---
PROCEDURE: XR TIBIA FUBULA RT 2V INDICATIONS: swelling s/p trauma to proximal tibia TECHNIQUE: 2 views of the tibia and fibula were acquired. COMPARISON: None. FINDINGS: Bones: No fractures or dislocations. No suspicious bony lesions. Soft tissues: No suspicious soft tissue calcifications or masses. IMPRESSION: No acute bony abnormality. Dictated by: Derrick Guzman M.D. on 02/01/2025 at 10:42 Approved by: Derrick Guzman M.D. on 02/01/2025 at 10:42
[2025-02-01 11:15] VITALS: O2SAT 98
[2025-02-01 11:16] VITALS: BP 144/82; PULSE 61; O2SAT 97
[2025-02-01] MEDS: cephALEXin 250 MG CAPSULE 500 MG PO (11:16)
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
== END 2025-02-01 11:45 | disposition home or self-care (01) ==
PROVIDERS: Emergency Provider Student in an Organized Health Care Education/Training Program; PCP Physician Assistant
DX: S80.11XA Contusion of right lower leg, initial encounter (principal); L03.115 Cellulitis of right lower limb; W01.0XXA Fall on same level from slipping, tripping and stumbling without subsequent striking against object, initial encounter
CPT/HCPCS: 73590; 99283

== ENCOUNTER → 2025-04-03 08:48 | Outpatient (CLI) | payer OTHER, SELFPAY ==
--- NOTE | 2025-04-03 08:48 | DI.US.S_ITS ---
PROCEDURE: US ABDOMEN COMPLETE INDICATIONS: Renanl tumors TECHNIQUE: Real-time scanning was performed of the abdominal and retroperitoneal organs, with image documentation. COMPARISON: None. FINDINGS: Liver: Enlarged measuring 17.8 cm and mildly increased in echogenicity. Gallbladder: Normal in appearance. No gallstones or gallbladder wall thickening. Biliary ducts: Intrahepatic bile ducts are non-dilated. Extrahepatic bile duct caliber measures 3.8 mm. Normal is 6-7 mm or less in diameter, or 10 mm or less post-cholecystectomy. Pancreas: Visualized portions of the pancreas are sonographically normal. Tail is not well seen Spleen: Spleen is normal in size and homogeneous in echotexture. Kidneys: Kidneys are normal in size and echotexture. Right kidney measures 11.1 cm long; left kidney measures 11.3 cm long. No hydronephrosis or nephrolithiasis. No solid masses. Left renal lobular contour versus dromedary hump. Aorta: Visualized aorta is normal in caliber at less than 3 cm. Iliacs: Proximal common iliac arteries are normal in caliber at less than 2.5 cm. IVC: Intrahepatic inferior vena cava is patent. Miscellaneous: No free abdominal fluid. IMPRESSION: 1. No renal masses are identified. 2. The liver is mildly enlarged and increased in echogenicity, most consistent with hepatic steatosis. Dictated by: Raulito Montoya M.D. on 04/03/2025 at 11:58 Approved by: Raulito Montoya M.D. on 04/03/2025 at 12:03
== END ==
PROVIDERS: PCP Physician Assistant; Referring Provider Physician Assistant; Visit Provider Physician Assistant
DX: D75.1 Secondary polycythemia (principal); R16.0 Hepatomegaly, not elsewhere classified
CPT/HCPCS: 76700